=== PATIENT | male | born 1950 | race Caucasian/White ===

== ENCOUNTER → 2019-06-10 | Outpatient (CLI) | payer MEDICARE | END | disposition home or self-care (01) | LOC: LABPAT 10:12 | PROVIDERS: ATTEND Urology | DX: Z01.812 Encounter for preprocedural laboratory examination (principal); Z01.818 Encounter for other preprocedural examination; N20.1 Calculus of ureter; I10 Essential (primary) hypertension | CPT/HCPCS: 93005 ==

== ENCOUNTER 2019-06-15 07:18 | Day surgery (SDC) | payer MEDICARE ==
[2019-06-14 12:22] VITALS: BMI 29.9
[2019-06-15] MEDS ORDERED: ONDANSETRON 4 MG/2 ML VIAL IVP ONE (07:21)
[2019-06-15] MEDS ORDERED: HYDROmorphone 0.5 MG/0.5 ML SYRINGE IVP PRN (07:21)
[2019-06-15] MEDS ORDERED: DEXAMETHASONE SOD PHOSPHATE 10 MG/ML 1 ML VIAL IV ONE (07:21)
[2019-06-15] MEDS ORDERED: LACTATED RINGERS 1,000 ML IV SCH (07:21)
[2019-06-15] MEDS ORDERED: MIDAZOLAM 2 MG/2 ML VIAL IV PRN (07:21)
[2019-06-15] MEDS ORDERED: LIDOCAINE 1% 20 ML VIAL (10MG/ML) FOR IV START INTRADERMA ONE (07:56)
[2019-06-15] MEDS ORDERED: VECURONIUM 10 MG VIAL IV ONE (08:20)
[2019-06-15] MEDS ORDERED: NEOSTIGMINE 1 MG/ML 10 ML VIAL ONE (08:20)
[2019-06-15] MEDS ORDERED: fentaNYL (PF) 50 MCG/ML 2 ML AMP ONE (08:20)
[2019-06-15] MEDS ORDERED: SUCCINYLCHOLINE CHLORIDE 100 MG/5 ML SYR IV ONE (08:20)
[2019-06-15] MEDS ORDERED: PROPOFOL 10 MG/ML 20 ML VIAL IV ONE (08:20)
[2019-06-15] MEDS ORDERED: MIDAZOLAM 2 MG/2 ML VIAL ONE (08:20)
[2019-06-15] MEDS ORDERED: LIDOCAINE 1% INJ 10MG/ML (20 ML MDV) ONE (08:20)
[2019-06-15] MEDS ORDERED: GLYCOPYRROLATE 0.2 MG/ML 2 ML VIAL ONE (08:20)
--- NOTE | 2019-06-15 08:44 | XR ---
EXAMINATION TYPE: XR KUB DATE OF EXAM: 06/15/2019 COMPARISON: NONE HISTORY: Prelithotripsy. Left ureteral calculus. TECHNIQUE: Supine abdominal radiograph was obtained FINDINGS: There is a 1.0 cm density in the left hemipelvis in the expected location of the distal lef t ureter/ureterovesicular junction. Bowel gas and stool obscure the renal shadows. No other suspiciou s calcifications in the pelvis. Diffuse osseous demineralization is seen with degenerative changes of the spine. Lung bases are overall well aerated. IMPRESSION: 1.0 cm left hemipelvic calculus near the expected location of the left ureterovesicular j unction.
--- NOTE | 2019-06-15 10:24 | P.OP ---
Date of Procedure: 06/15/19 Preoperative Diagnosis: Distal left ureteral calculus Postoperative Diagnosis: Distal left ureteral calculus Procedure(s) Performed: Cystoscopy with left ureteroscopy, lithotripsy and placement of left double-J catheter Anesthesia: JOSIAH Surgeon: Johnson Stokes Estimated Blood Loss (ml): 3 Pathology: other (Fragment of left ureteral calculus) Condition: stable Disposition: PACU Indications for Procedure: The patient developed urinary retention approximately one week ago and was admitted to [facility]. As part of his evaluation a computed tomography scan of the abdomen and pelvis was obtained. This identified a 7 x 11 mm calculus in the distal left ureter. Urine culture grew 10-25,000 colonies of E. coli which has been treated with Bactrim. Left ureteroscopy with lithotripsy is planned. Description of Procedure: The patient was taken to the operating suite where adequate general anesthesia via orotracheal intubation was instituted. He was placed in the dorsal lithotomy position with his legs suspended from padded stirrups. Pneumatic compression stockings were applied to the lower legs. The genitalia was prepped with Betadine solution and draped in sterile fashion. Penile and prostatic urethra was traversed under direct vision using using the 17-Surinamese cystoscope sheath and 30 lens. The anterior urethra was unremarkable. The prostatic urethra showed evidence of moderate lateral lobe enlargement. Bladder was examined. A large amount of edema was noted on the floor the bladder from the patient's De Leon catheter. It was initially difficult to identify either the right or left ureteral orifice. There appeared to be a small bladder diverticulum on the left lateral wall the bladder. Left ureteral orifice was eventually identified and a 0.035 straight Glidewire was advanced through the ureteral orifice and up into the proximal ureter. The cystoscope was withdrawn leaving the Glidewire in place. The 9.5-Surinamese semirigid ureteroscope with offset lens was passed through the urethra and into the bladder under direct vision. It was possible to advance the ureteroscope along the Glidewire and into the distal ureter. The left ureteral calculus was identified. It was irregular in shape. The calculus was then broken down into multiple small fragments using the 350 fiber and the holmium laser at a setting of 1.4 J and 20 cps. The calculus was hard and did not fragment readily. The calculus fragments appeared to be no more than 1-2 mm in size and it was elected not to attempt to basket all fragments due to her number. A business services representative sample was removed using a 1.9-Surinamese stone basket and was submitted for stone analysis. The ureteroscope was withdrawn leaving the Glidewire in place. The 22-Surinamese cystoscope sheath with 30 lens was backloaded over the Glidewire and reintroduced into the bladder. A 6-Surinamese by 24 cm double-J catheter was advanced over the Glidewire and positioned fluoroscopically so that the proximal end coiled in the region of the left renal pelvis and the distal end coiled in the bladder the bladder was drained and the cystoscope was withdrawn. The bladder was irrigated and a 16-Surinamese De Leon catheter was inserted and left to gravity drainage. Patient tolerated procedure well and left the operative room awake and in satisfactory condition blood loss was less than 2 or 3 mL and occurred mainly from the bladder neck region. The patient will be discharged with De Leon marlene ter in place. He will remove his catheter between 7 and 8 in the morning and will be seen back in my office approximately 2 PM to check a postvoid residual.
[2019-06-15 10:34] VITALS: RESP 18; TEMP 97.1
--- NOTE | 2019-06-15 10:41 | FL ---
EXAMINATION TYPE: FL guidance operating room DATE OF EXAM: 06/15/2019 CLINICAL HISTORY: Fluoroscopic documentation during lithotripsy and ureteral stent placement TECHNIQUE: Fluoroscopy. COMPARISON: None. FINDINGS: Fluoroscopic guidance was provided during procedure performed by Dr. Stokes. A total of 14 seconds of fluoroscopic time was utilized during the procedure and 1 spot image was acquired during ureteral stent placement. IMPRESSION: As Above.
[2019-06-15] MEDS ORDERED: HYDROcodone/APAP 5-325MG 1 EACH TAB PO ONE (11:31)
[2019-06-15] MEDS ORDERED: BELLADONNA-OPIUM 16.2-60 MG 1 EACH SUPP RECTAL ONE (12:13)
[2019-06-15 12:25] VITALS: BP 157/91; PULSE 69
== END 2019-06-15 13:39 | disposition home or self-care (01) ==
LOC: OR 07:18
PROVIDERS: ATTEND Urology
DX: N13.2 Hydronephrosis with renal and ureteral calculous obstruction (principal); N39.0 Urinary tract infection, site not specified; B96.20 Unspecified Escherichia coli [E. coli] as the cause of diseases classified elsewhere; N32.0 Bladder-neck obstruction; I10 Essential (primary) hypertension; K21.9 Gastro-esophageal reflux disease without esophagitis; H91.90 Unspecified hearing loss, unspecified ear; Z79.899 Other long term (current) drug therapy; Z87.891 Personal history of nicotine dependence; Z92.21 Personal history of antineoplastic chemotherapy; Z85.47 Personal history of malignant neoplasm of testis; Z90.79 Acquired absence of other genital organ(s); Z98.890 Other specified postprocedural states; Z80.3 Family history of malignant neoplasm of breast; Z80.1 Family history of malignant neoplasm of trachea, bronchus and lung; Z84.1 Family history of disorders of kidney and ureter
CPT/HCPCS: 74018; 82365